=== PATIENT | male | born 1990 | race Caucasian/White ===

== ENCOUNTER 2018-06-20 22:59 | Observation (INO) | payer SELFPAY ==
[2018-06-21] MEDS ORDERED: ONDANSETRON 4 MG/2 ML VIAL ONE (00:13)
[2018-06-21] MEDS ORDERED: MORPHINE 4 MG/ML SYR ONE (00:13)
[2018-06-21] MEDS ORDERED: PANTOPRAZOLE 40 MG INJ ONE (00:14)
[2018-06-21] MEDS ORDERED: WATER FOR INJ,STERILE 10 ML ONE (00:14)
[2018-06-21] MEDS ORDERED: NA CHLORIDE 0.9% 1,000 ML ONE ×3 (00:26→08:40)
[2018-06-21 01:26] LABS: Absolute Lymphocytes (CBC) 0.6 K/uL (0.7-4.9); Absolute Monocytes 0.4 K/uL (0.1-1.3); Absolute Neutrophil 9.3 K/uL (1.8-8.0); Basophils % 0.2 % (0-1.3); Eosinophils % 1.4 % (0-4.4); Hematocrit 49.9 % (39.6-49.0); Lymphocytes % 5.7 % (15.3-44.8); Monocytes % 3.8 % (3.3-12.3); RBC Red Blood Cell Count 5.99 M/uL (4.33-5.43)
[2018-06-21 01:47] LABS: Albumin 4.9 g/dL (3.4-5.0); Bilirubin Direct 0.1 mg/dL (0-0.2); Bilirubin Total 0.6 mg/dL (0.2-1.0); Potassium 3.9 mmol/L (3.5-5.1); Protein, Total 8.3 g/dL (6.4-8.2)
--- NOTE | 2018-06-21 01:48 | ER ---
Nurse's Notes [facility] Name: Bulmaro Pickering Age: 27 yrs Sex: Male : 1990 Arrival Date: 06/20/2018 Time: 23:02 Bed 13 Private MD: Diagnosis: Abdominal tenderness;Fever, unspecified;Vomiting;Diarrhea, unspecified Presentation: 06/20 23:18 Presenting complaint: Patient states: i have epigastric, both flank pain and diarrhea mg2 started 3 hours ago. patient is vomiting in triage. Transition of care: patient was not received from another setting of care. Onset of symptoms was June 20, 2018. Risk Assessment: Do you want to hurt yourself or someone else? Patient reports no desire to harm self or others. Initial Sepsis Screen: Does the patient meet any 2 criteria? No. Patient's initial sepsis screen is negative. Does the patient have a suspected source of infection? No. Patient's initial sepsis screen is negative. Care prior to arrival: None. 23:18 Method Of Arrival: Ambulatory mg2 23:18 Acuity: JAMIL 3 mg2 Historical: - Allergies: 23:29 No Known Allergies; mg2 - Home Meds: 23:29 None [Active]; mg2 - PMHx: 23:29 None; mg2 - PSHx: 23:29 bone surgeries; mg2 - Immunization history:: Flu vaccine is not up to date. - Social history:: Smoking status: Patient uses tobacco products, smokes one-half pack cigarettes per day, Patient uses alcohol, occasionally. Patient/guardian denies using street drugs, IV drugs. - Ebola Screening: : No symptoms or risks identified at this time. - Family history:: not pertinent. Screenin:30 Abuse screen: Denies threats or abuse. Denies injuries from another. Nutritional mg2 screening: No deficits noted. Tuberculosis screening: No symptoms or risk factors identified. Fall Risk None identified. Assessment: 23:45 General: Appears in no apparent distress. uncomfortable, ill, Behavior is calm, ca1 cooperative, appropriate for age. Pain: Complains of pain in abdomen Pain currently is 7 out of 10 on a pain scale. Pain began 4 hours ago. Neuro: Level of Consciousness is awake, alert, obeys commands, Oriented to person, place, time, situation. Cardiovascular: Heart tones S1 S2 present Capillary refill < 3 seconds Patient's skin is warm and dry. Respiratory: Airway is patent Respiratory effort is even, unlabored, Respiratory pattern is regular, symmetrical, Breath sounds are clear bilaterally. GI: Abdomen is flat, non-distended, Bowel sounds present X 4 quads. Abd is soft X 4 quads Abdomen is tender to palpation X 4 quads. Reports cramping, diarrhea, nausea, vomiting. : No signs and/or symptoms were reported regarding the genitourinary system. EENT: No signs and/or symptoms were reported regarding the EENT system. EENT:. Derm: Skin is intact, Skin is pink, warm \T\ dry. Musculoskeletal: Circulation, motion, and sensation intact. 06/21 00:54 Reassessment: Patient appears in no apparent distress at this time. Patient and/or ca1 family updated on plan of care and expected duration. Pain level reassessed. Patient is alert, oriented x 3, equal unlabored respirations, skin warm/dry/pink. For CT scan abdomen. Oral contrast completed, informed in flight technician. 02:02 Reassessment: patient sent to ct scan per stretcher. mg2 02:36 Reassessment: Patient appears in no apparent distress at this time. Patient and/or cc3 family updated on plan of care and expected duration. Pain level reassessed. Patient is alert, oriented x 3, equal unlabored respirations, skin warm/dry/pink. Received from YARA Doss as a case of abdominal pain for admission awaiting bed availability, with IV cannula gauge 20 at the left ACV with ongoing IV Metronidazole 500 mg infusing well; Ciproflaxacin 400 mg IV still to be given as endorsed. 03:30 Reassessment: Patient appears in no apparent distress at this time. Patient and/or cc3 family updated on plan of care and expected duration. Pain level reassessed. Patient is alert, oriented x 3, equal unlabored respirations, skin warm/dry/pink. Patient now on ER Hold, charting continued in [facility]. Vital Signs: 06/20 23:21 BP 132 / 82; Pulse 103; Resp 18; Temp 98(TE); Pulse Ox 100% on R/A; Weight 83.91 kg; mg2 Height 6 ft. 1 in. (185.42 cm); Pain 10/10; 06/21 00:34 BP 105 / 76; Pulse 101; Resp 18; Pulse Ox 100% on R/A; ca1 01:17 BP 130 / 82; Pulse 116; Resp 28; Temp 102.; Pulse Ox 99% ; lt1 02:36 BP 106 / 53; Pulse 112; Resp 19 S; Pulse Ox 98% on R/A; cc3 03:45 BP 115 / 54; Pulse 110; Resp 20 S; Pulse Ox 96% on R/A; cc3 04:15 BP 106 / 85; Pulse 112; Resp 19 S; Pulse Ox 95% on R/A; cc3 05:15 BP 117 / 66; Pulse 107; Resp 18 S; Pulse Ox 96% on R/A; cc3 06:09 BP 108 / 79; Pulse 105; Resp 19 S; Temp 99.8(O); Pulse Ox 97% on R/A; cc3 08:30 BP 109 / 68; Pulse 80; Resp 17; Temp 98.9(O); Pulse Ox 99% on R/A; mh5 06/20 23:21 Body Mass Index 24.41 (83.91 kg, 185.42 cm) mg2 ED Course: 06/20 23:02 Patient arrived in ED. ag3 23:21 Triage completed. mg2 23:30 Arm band placed on. mg2 23:44 Maria C Zuleta, YARA is Primary Nurse. ca1 23:45 Patient has correct armband on for positive identification. Placed in gown. Bed in low ca1 position. Call light in reach. Side rails up X 1. Pulse ox on. NIBP on. Warm blanket given. 23:51 Angel Cole MD is Attending Physician. kimani 23:59 Missed attempt(s): 20 gauge in right antecubital area. lt1 23:59 Inserted saline lock: 20 gauge in left antecubital area, using aseptic technique. lt1 23:59 Initial lab(s) drawn, by me, sent to lab. lt1 06/21 01:44 Andi Palacios MD is Hospitalizing Provider. kimani 02:02 No provider procedures requiring assistance completed. mg2 02:07 CT completed. Patient tolerated procedure well. Patient moved to CT via stretcher. eh Patient moved back from CT. 02:44 CT Abd/Pelvis - W/Contrast In Process Unspecified. EDMS 07:00 Report given to YARA Menchaca. cc3 10:34 Stool Culture Sent. mh5 10:34 STOOL CULTURE COLLECTED AND SENT. mh5 16:10 IV discontinued, intact, bleeding controlled, No redness/swelling at site. Pressure rb1 dressing applied. Administered Medications: 00:00 Drug: Zofran 4 mg Route: IVP; Site: left antecubital; ca1 02:10 Follow up: Response: No adverse reaction; Marked relief of symptoms mg2 00:02 Drug: morphine 4 mg Route: IVP; Site: left antecubital; ca1 02:11 Follow up: Response: No adverse reaction; Marked relief of symptoms mg2 00:05 Drug: ProTONIX 40 mg Route: IVP; Site: left antecubital; ca1 02:11 Follow up: Response: No adverse reaction; Marked relief of symptoms mg2 00:10 Drug: NS 0.9% 1000 ml Route: IV; Rate: 1 bolus; Site: left antecubital; ca1 02:11 Follow up: Response: No adverse reaction; IV Status: Completed infusion mg2 01:53 Drug: Tylenol Suppository 650 mg Route: MS; mg2 02:40 Follow up: Response: No adverse reaction cc3 01:53 Drug: Flagyl 500 mg Volume: 100 ml; Route: IVPB; Rate: 200 ml/hr; Infused Over: 30 mg2 mins; Site: left antecubital; 03:10 Follow up: Response: No adverse reaction; IV Status: Completed infusion; IV Intake: cc3 100ml 03:15 Drug: Cipro 400 mg Volume: 200 ml; Route: IVPB; Infused Over: 60 mins; Site: left cc3 antecubital; 04:20 Follow up: Response: No adverse reaction; IV Status: Completed infusion; IV Intake: cc3 200ml Intake: 03:10 IV: 100ml; Total: 100ml. cc3 04:20 IV: 200ml; Total: 300ml. cc3 Outcome: 01:46 Decision to Hospitalize by Provider. kimani 16:10 Discharged to home ambulatory. rb1 16:10 Condition: stable 16:10 Discharge instructions given to patient, Instructed on discharge instructions, follow up and referral plans. Demonstrated understanding of instructions, follow-up care, Prescriptions given X none 16:28 Patient left the ED. Signatures: Dispatcher [employer] EDCT Angel Cole MD MD cha Hagler, Ervin eh Smirch, Shelby, RN RN Bernarda Diaz, YARA RN rb1 [address] [facility] Terry Patten RN RN mg2 Genevieve Valdez cc3 Kelly Peter 3 Maria C Zuleta RN RN ca1 Keisha, Kenia lt1 Corrections: (The following items were deleted from the chart) 06/20 23:32 23:21 Resp 18bpm; Pulse Ox 100% RA; Temp 98F Temporal; Pain 10/10; mg2 mg2 06/21 04:36 03:30 Reassessment: Patient appears in no apparent distress at this time. Patient cc3 and/or family updated on plan of care and expected duration. Pain level reassessed. Patient is alert, oriented x 3, equal unlabored respirations, skin warm/dry/pink. Patient now on ER Hold. cc3 06:44 06:09 BP 108 / 79; Pulse 105bpm; Resp 19bpm; Spontaneous; Pulse Ox 97% RA; cc3 cc3
--- NOTE | 2018-06-21 01:48 | EDPHYS ---
Physician Documentation [facility] Name: Bulmaro Pickering Age: 27 yrs Sex: Male : 1990 Arrival Date: 06/20/2018 Time: 23:02 Bed 13 Private MD: ED Physician Angel Cole HPI: 06/20 23:56 This 27 yrs old Male presents to ER via Ambulatory with complaints of kimani Abdominal Pain. 23:56 The patient presents with abdominal pain in the upper abdomen, in the lower abdomen, kimani abdominal distention in the upper abdomen, in the lower abdomen. Onset: The symptoms/episode began/occurred just prior to arrival, today. The patient presents to the emergency department with nausea, vomiting, diarrhea, abdominal pain, of the right upper quadrant, left upper quadrant, right lower quadrant and left lower quadrant. Onset: The symptoms/episode began/occurred today. Possible causes: unknown. The symptoms are aggravated by nothing. The symptoms are alleviated by nothing. Associated signs and symptoms: Pertinent positives: diarrhea, nausea, vomiting. Associated signs and symptoms: Pertinent positives: nausea and vomiting, diarrhea. Historical: - Allergies: 23:29 No Known Allergies; mg2 - Home Meds: 23:29 None [Active]; mg2 - PMHx: 23:29 None; mg2 - PSHx: 23:29 bone surgeries; mg2 - Immunization history:: Flu vaccine is not up to date. - Social history:: Smoking status: Patient uses tobacco products, smokes one-half pack cigarettes per day, Patient uses alcohol, occasionally. Patient/guardian denies using street drugs, IV drugs. - Ebola Screening: : No symptoms or risks identified at this time. - Family history:: not pertinent. ROS: 23:56 Constitutional: Negative for fever, chills, and weight loss, Eyes: Negative for injury, kimani pain, redness, and discharge, ENT: Negative for injury, pain, and discharge, Neck: Negative for injury, pain, and swelling, Cardiovascular: Negative for chest pain, palpitations, and edema, Respiratory: Negative for shortness of breath, cough, wheezing, and pleuritic chest pain, Back: Negative for injury and pain, : Negative for injury, bleeding, discharge, and swelling, MS/Extremity: Negative for injury and deformity, Skin: Negative for injury, rash, and discoloration, Neuro: Negative for headache, weakness, numbness, tingling, and seizure. 23:56 Abdomen/GI: Positive for abdominal pain, nausea and vomiting, diarrhea, abdominal cramps, of the right lower quadrant and left lower quadrant. Exam: 23:59 Constitutional: This is a well developed, well nourished patient who is awake, alert, kimani and in no acute distress. Head/Face: Normocephalic, atraumatic. Eyes: Pupils equal round and reactive to light, extra-ocular motions intact. Lids and lashes normal. Conjunctiva and sclera are non-icteric and not injected. Cornea within normal limits. Periorbital areas with no swelling, redness, or edema. ENT: Nares patent. No nasal discharge, no septal abnormalities noted. Tympanic membranes are normal and external auditory canals are clear. Oropharynx with no redness, swelling, or masses, exudates, or evidence of obstruction, uvula midline. Mucous membranes moist. Neck: Trachea midline, no thyromegaly or masses palpated, and no cervical lymphadenopathy. Supple, full range of motion without nuchal rigidity, or vertebral point tenderness. No Meningismus. Chest/axilla: Normal chest wall appearance and motion. Nontender with no deformity. No lesions are appreciated. Cardiovascular: Regular rate and rhythm with a normal S1 and S2. No gallops, murmurs, or rubs. Normal PMI, no JVD. No pulse deficits. Respiratory: Lungs have equal breath sounds bilaterally, clear to auscultation and percussion. No rales, rhonchi or wheezes noted. No increased work of breathing, no retractions or nasal flaring. Back: No spinal tenderness. No costovertebral tenderness. Full range of motion. Male : Normal genitalia with no discharge or lesions. Skin: Warm, dry with normal turgor. Normal color with no rashes, no lesions, and no evidence of cellulitis. MS/ Extremity: Pulses equal, no cyanosis. Neurovascular intact. Full, normal range of motion. Neuro: Awake and alert, GCS 15, oriented to person, place, time, and situation. Cranial nerves II-XII grossly intact. Motor strength 5/5 in all extremities. Sensory grossly intact. Cerebellar exam normal. Normal gait. Psych: Awake, alert, with orientation to person, place and time. Behavior, mood, and affect are within normal limits. 23:59 Abdomen/GI: Inspection: distension, Bowel sounds: normal, Palpation: mild abdominal tenderness, moderate abdominal tenderness, Liver: no appreciated palpable abnormalities, Hernia: not appreciated. Vital Signs: 23:21 BP 132 / 82; Pulse 103; Resp 18; Temp 98(TE); Pulse Ox 100% on R/A; Weight 83.91 kg; mg2 Height 6 ft. 1 in. (185.42 cm); Pain 1010; 06/21 00:34 BP 105 / 76; Pulse 101; Resp 18; Pulse Ox 100% on R/A; ca1 01:17 BP 130 / 82; Pulse 116; Resp 28; Temp 102.; Pulse Ox 99% ; lt1 02:36 BP 106 / 53; Pulse 112; Resp 19 S; Pulse Ox 98% on R/A; cc3 03:45 BP 115 / 54; Pulse 110; Resp 20 S; Pulse Ox 96% on R/A; cc3 04:15 BP 106 / 85; Pulse 112; Resp 19 S; Pulse Ox 95% on R/A; cc3 05:15 BP 117 / 66; Pulse 107; Resp 18 S; Pulse Ox 96% on R/A; cc3 06:09 BP 108 / 79; Pulse 105; Resp 19 S; Temp 99.8(O); Pulse Ox 97% on R/A; cc3 08:30 BP 109 / 68; Pulse 80; Resp 17; Temp 98.9(O); Pulse Ox 99% on R/A; mh5 06/20 23:21 Body Mass Index 24.41 (83.91 kg, 185.42 cm) mg2 MDM: 06/20 23:51 Patient medically screened. kimani 06/21 00:01 Data reviewed: vital signs, nurses notes, EMS record, lab test result(s), radiologic kimani studies, CT scan, plain films. 06/20 23:27 Order name: Basic Metabolic Panel 06/20 23:27 Order name: CBC with Diff 06/20 23:27 Order name: Creatinine for Radiology; Complete Time: 01:39 06/20 23:27 Order name: Hepatic Function 06/20 23:27 Order name: Lipase 06/21 01:38 Order name: Manual Differential EDMS 06/20 23:56 Order name: CT Abd/Pelvis - W/Contrast [facility] 06/21 10:25 Order name: Stool Culture mh5 06/20 23:27 Order name: IV Saline Lock; Complete Time: 00:10 06/20 23:27 Order name: Labs collected and sent; Complete Time: 00:10 06/21 02:46 Order name: CONS Pharmacy Consult [facility] 06/21 02:46 Order name: Full Liquid EDMS Administered Medications: 00:00 Drug: Zofran 4 mg Route: IVP; Site: left antecubital; ca1 02:10 Follow up: Response: No adverse reaction; Marked relief of symptoms mg2 00:02 Drug: morphine 4 mg Route: IVP; Site: left antecubital; ca1 02:11 Follow up: Response: No adverse reaction; Marked relief of symptoms mg2 00:05 Drug: ProTONIX 40 mg Route: IVP; Site: left antecubital; ca1 02:11 Follow up: Response: No adverse reaction; Marked relief of symptoms mg2 00:10 Drug: NS 0.9% 1000 ml Route: IV; Rate: 1 bolus; Site: left antecubital; ca1 02:11 Follow up: Response: No adverse reaction; IV Status: Completed infusion mg2 01:53 Drug: Tylenol Suppository 650 mg Route: ND; mg2 02:40 Follow up: Response: No adverse reaction cc3 01:53 Drug: Flagyl 500 mg Volume: 100 ml; Route: IVPB; Rate: 200 ml/hr; Infused Over: 30 mg2 mins; Site: left antecubital; 03:10 Follow up: Response: No adverse reaction; IV Status: Completed infusion; IV Intake: cc3 100ml 03:15 Drug: Cipro 400 mg Volume: 200 ml; Route: IVPB; Infused Over: 60 mins; Site: left cc3 antecubital; 04:20 Follow up: Response: No adverse reaction; IV Status: Completed infusion; IV Intake: cc3 200ml Disposition: 06/21/18 01:46 Hospitalization ordered by Andi Palacios for Observation. Preliminary diagnosis are Abdominal tenderness, Fever, unspecified, Vomiting, Diarrhea, unspecified. - Bed requested for [facility] ER HOLD. - Status is Observation. ss - Condition is Stable. - Problem is new. - Symptoms have improved. UTI on Admission? No Signatures: Dispatcher [employer] EDMS Angel Cole MD MD cha Chretien, Felicia, RN RN fc Monae Lobato RN RN ss Terry Patten, YARA RN [facility] Genevieve Valdez cc3 Maria C Zuleta RN RN ca1 Corrections: (The following items were deleted from the chart) 03:29 01:46 Hospitalization Ordered by Andi Palacios MD for Observation. Preliminary fc diagnosis is Abdominal tenderness; Fever, unspecified; Vomiting; Diarrhea, unspecified. Bed requested for Telemetry/MedSurg (observation). Status is Observation. Condition is Stable. Problem is new. Symptoms have improved. UTI on Admission? No. kimani 16:28 03:29 06/21/2018 01:46 Hospitalization Ordered by Andi Palacios MD for Observation. Preliminary diagnosis is Abdominal tenderness; Fever, unspecified; Vomiting; Diarrhea, unspecified. Bed requested for [facility] ER HOLD. Status is Observation. Condition is Stable. Problem is new. Symptoms have improved. UTI on Admission? No. fc
[2018-06-21] MEDS ORDERED: ACETAMINOPHEN 650MG/RECT SUPP PR ONE (01:57)
[2018-06-21] MEDS ORDERED: METRONIDAZOLE 500mg IVPB 500 MG/100 ML BAG IV ONE (01:57)
[2018-06-21] MEDS ORDERED: CIPROFLOXACIN 400mg IV 400 MG/200 ML BAG IV ONE (01:57)
[2018-06-21 02:20] LABS: Blood Morphology Comment NOT SEEN (NOT SEEN); Platelet Estimate ADEQ
[2018-06-21] MEDS ORDERED: ONDANSETRON 4 MG/2 ML VIAL IV PRN (02:43)
[2018-06-21] MEDS ORDERED: ACETAMINOPHEN 500 MG TAB PO PRN (02:43)
[2018-06-21] MEDS: NA CHLORIDE 0.9% 1,000 ML IV SCH ×2 (05:00→13:00)
[2018-06-21] MEDS ORDERED: METHYLPREDNISOLONE 125 MG INJ IV SCH (06:00)
[2018-06-21] MEDS ORDERED: METHYLPREDNISOLONE 125 MG INJ ONE (06:02)
[2018-06-21 06:22] VITALS: BMI 24.4
[2018-06-21] MEDS ORDERED: ACETAMINOPHEN 500 MG TAB ONE (07:44)
[2018-06-21] MEDS ORDERED: NA CHLORIDE 0.9% 1,000 ML IV ONE (08:24)
[2018-06-21] MEDS ORDERED: INFLUENZA VACCINE (for 3y+) 0.5 ML DOSE IMVAC ONE ×2 (09:00→09:35)
--- NOTE | 2018-06-21 09:25 | P.HP ---
Certification for Inpatient Patient admitted to: Observation With expected LOS: <2 Midnights Patient will require the following post-hospital care: None Practitioner: I am a practitioner with admitting privileges, knowledge of patient current condition, hospital course, and medical plan of care. Services: Services provided to patient in accordance with Admission requirements found in Title 42 Section 412.3 of the Code of Federal Regulations Patient History Date of Service: 06/21/18 Reason for admission: viral gastroenteritis History of Present Illness: Patient is a 27-year-old gentleman who had abdominal pain while at work. This progressed to persistent diarrhea. His pain was getting more severe and he was brought to the emergency room. In the ER he was given IV fluids and pain medication and his symptoms started improving. He was still having pain so he was admitted to the hospital for further evaluation. Allergies No Known Allergies Allergy (Unverified 06/21/18 04:39) - Past Medical/Surgical History Has patient received pneumonia vaccine in the past: Yes Diabetic: No -: asthma -: minor lip surgery - Family History Mother Medical History: Diabetes, Other (see notes) Notes: mother - arthritis. brother - bipolar, schizophrenia - Social History Smoking Status: Current every day smoker Alcohol use: Yes CD- Drugs: No Caffeine use: Yes Place of Residence: Home Review of Systems 10-point ROS is otherwise unremarkable Physical Examination - Vital Signs Temperature: 98.7 F Blood Pressure: 97/60 Pulse: 107 Respirations: 17 Pulse Ox (%): 97 - Physical Exam General: Alert, In no apparent distress, Oriented x3 HEENT: Atraumatic, PERRLA, Mucous membr. moist/pink, EOMI, Sclerae nonicteric Neck: Supple, 2+ carotid pulse no bruit, No LAD, Without JVD or thyroid abnormality Respiratory: Clear to auscultation bilaterally, Normal air movement Cardiovascular: Regular rate/rhythm, Normal S1 S2, No murmurs Gastrointestinal: Normal bowel sounds, Soft and benign, Non-distended, Tenderness ( mild tenderness) Musculoskeletal: No clubbing, No swelling, No tenderness Integumentary: No rashes Neurological: Normal gait, Normal speech, Normal strength at 5/5 x4 extr, Normal tone, Sensation intact, Cranial nerves 3-12 intact, Normal affect Lymphatics: No axilla or inguinal lymphadenopathy - Studies Laboratory Data (last 24 hrs) 06/21/18 00:21: Creatinine 1.06 06/21/18 00:21: WBC 10.5, Hgb 17.0, Hct 49.9 H, Plt Count 135 L 06/21/18 00:21: Sodium 141, Potassium 3.9, BUN 16, Creatinine 1.05, Glucose 112 H, Total Bilirubin 0.6, AST 29, ALT 53, Alkaline Phosphatase 67, Lipase 63 L Assessment & Plan - Problems (Diagnosis) (1) Viral gastroenteritis Current Visit: Yes Status: Acute - Plan Plan: 1. IV fluids 2. Stool studies 3. advanced diet as tolerated 4. Pain control 5. Repeat abdominal film if pain worsens 6. GI and DVT prophylaxis Discharge Plan: Home Plan to discharge in: 24 Hours - Advance Directives Does patient have a Living Will: No Does patient have a Durable POA for Healthcare: No - Code Status/Comfort Care Code Status Assessed: Yes Code Status: Full Code Critical Care: No Time Spent Managing PTS Care (In Minutes): 45
[2018-06-21 16:19] VITALS: BP 105/63; TEMP 98.7
[2018-06-21 17:13] VITALS: O2SAT 99
--- NOTE | 2018-06-21 19:46 | RAD REPORT ---
EXAM DESCRIPTION: CT - Abdomen Pelvis W Contrast - 06/21/2018 4:41 am CLINICAL HISTORY: The patient is 27 years old and is Male; ABD PAIN COMPARISON: No relevant prior studies available. TECHNIQUE: Axial computed tomography images of the abdomen and pelvis with intravenous contrast. Sagittal and co franky reformatted images were created and reviewed. This CT exam was performed using one or more of t he following dose reduction techniques: Automated exposure control, adjustment of the mA and/or kV ac cording to patient size, and/or use of iterative reconstruction technique. FINDINGS: Lung bases: Unremarkable. No mass. No consolidation. ABDOMEN: Liver: The liver is prominent. Gallbladder and bile ducts: No calcified stones. No ductal dilation. Pancreas: No ductal dilation. No mass. Spleen: Unremarkable. Adrenals:Unremarkable. No mass. Kidneys and ureters: Unremarkable. No solid mass. No hydronephrosis. Stomach and bowel: The stomach is moderately distended with oral contrast. Oral contrast is present w ithin the proximal and mid small bowel. The distal small bowel is decompressed. The majority of the c olon is filled with liquid stool. There is no mucosal thickening or evidence of bowel obstruction. PELVIS: Appendix: The appendix is normal in caliber without surrounding inflammation. Bladder: Unremarkable. No mass. Reproductive: Unremarkable as visualized. ABDOMEN and PELVIS: Intraperitoneal space: Unremarkable. No free air. No significant fluid collection. Bones/joints: No acute fracture. Soft tissues: The soft tissues are normal. Vasculature: Unremarkable. No abdominal aortic aneurysm. Lymph nodes: Unremarkable. No enlarged lymph nodes. IMPRESSION: Nonspecific appearance of the colon filled with liquid stool which may be secondary to a history of diarrhea. There is no mucosal thickening to suggest colitis at this time. No bowel obstru ction. 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 The interpreting radiologist is f ully responsible for the content of the report.
== END 2018-06-21 16:10 | disposition home or self-care (01) ==
LOC: ER 22:59 → ERHOLD 06-21 02:44
PROVIDERS: ADMIT Hospitalist; ATTEND Hospitalist
DX: A08.4 Viral intestinal infection, unspecified (principal); F17.210 Nicotine dependence, cigarettes, uncomplicated; Z23 Encounter for immunization
CPT/HCPCS: 36415; 74177; 80048; 80076; 83690; 85025; 87045; 87046; 87177; 87209; 89055; 96361; 96365; 96367; 96375; 99284; C9113; G0008; G0378; J0744; J2405; J2930; J7030; Q2035; Q9967

== ENCOUNTER 2020-11-01 20:38 | Emergency (ER) | payer BC, SELFPAY ==
--- NOTE | 2020-11-01 22:53 | ER ---
Nurse's Notes [facility] Name: Bulmaro Pickering Age: 30 yrs Sex: Male : 1990 Arrival Date: 11/01/2020 Time: 20:42 Bed 17 Private MD: Diagnosis: Contusion of right foot Presentation: 11/01 20:55 Chief complaint: Patient states: C/O R foot pain s/p "2x4 fell on it". Minimal swelling ad5 noted to dorsal aspect of R foot, distal SMCs intact. Pt reports difficulty ambulating d/t pain. Coronavirus screen: At this time, the client does not indicate any symptoms associated with coronavirus-19. Ebola Screen: No symptoms or risks identified at this time. Initial Sepsis Screen: Does the patient meet any 2 criteria? No. Patient's initial sepsis screen is negative. Does the patient have a suspected source of infection? No. Patient's initial sepsis screen is negative. Risk Assessment: Do you want to hurt yourself or someone else? Patient reports no desire to harm self or others. Onset of symptoms was November 01, 2020. 20:55 Method Of Arrival: Wheelchair ad5 20:55 Acuity: JAMIL 4 ad5 Triage Assessment: 20:57 General: Appears in no apparent distress. Behavior is calm, cooperative, appropriate ad5 for age. 21:42 Musculoskeletal: Swelling present in right foot. ea Historical: - Allergies: 20:57 No Known Allergies; ad5 - PMHx: 20:57 None; ad5 - Immunization history:: Adult Immunizations unknown. - Social history:: Smoking status: unknown. Screenin:36 Abuse screen: Denies threats or abuse. Nutritional screening: No deficits noted. ea Tuberculosis screening: No symptoms or risk factors identified. Fall Risk None identified. Assessment: 21:35 General: Appears uncomfortable, Behavior is appropriate for age. Pain: Complains of ea pain in right foot. Neuro: Level of Consciousness is awake, alert, obeys commands, Oriented to person, place, time. Cardiovascular: Patient's skin is warm and dry. Respiratory: Airway is patent Respiratory effort is even, unlabored, Respiratory pattern is regular, symmetrical. Derm: Skin is pink, warm \\T\\ dry. 22:47 Reassessment: Patient and/or family updated on plan of care and expected duration. Pain ea level reassessed. Patient is alert, oriented x 3, equal unlabored respirations, skin warm/dry/pink. 23:00 Reassessment: Patient and/or family updated on plan of care and expected duration. Pain ea level reassessed. Patient is alert, oriented x 3, equal unlabored respirations, skin warm/dry/pink. Discharge instruction given to patient verbalized the understanding of instruction. Pt left ED ambulatory tolerating well. Vital Signs: 20:55 BP 128 / 98; Pulse 73; Resp 18 S; Temp 98.3; Pulse Ox 98% on R/A; Weight 97.52 kg; ad5 Height 6 ft. 1 in. (185.42 cm); 22:48 BP 111 / 75; Pulse 68; Resp 18; Pulse Ox 98% on R/A; ea 20:55 Body Mass Index 28.37 (97.52 kg, 185.42 cm) ad5 ED Course: 20:42 Patient arrived in ED. bp1 20:57 Triage completed. ad5 21:29 Arm band placed on. ad5 21:32 Janine Salazar RN is Primary Nurse. ea 21:34 Faraz Emerson NP is PHCP. pm1 21:34 Darrick Pennington MD is Attending Physician. pm1 21:36 Patient has correct armband on for positive identification. Bed in low position. Call ea light in reach. 22:31 Foot Right 3 View XRAY In Process Unspecified. EDMS 22:52 applied walking boot to R foot. mt 23:00 No provider procedures requiring assistance completed. Patient did not have IV access ea during this emergency room visit. Administered Medications: No medications were administered Outcome: 22:53 Discharge ordered by . pm1 23:00 Discharged to home ambulatory, with family. ea 23:00 Condition: stable 23:00 Discharge instructions given to patient, Instructed on discharge instructions, follow up and referral plans. medication usage, Demonstrated understanding of instructions, follow-up care, medications, Prescriptions given X 1. 23:00 Patient left the ED. ea Signatures: Dispatcher [employer] EDMS Faraz Emerson, DONALD MARKET DEVELOPER pm1 Angela Lizama nv Janine Salazar RN RN ea Janay Cabrera bp1 Phillip Campbell ad5
--- NOTE | 2020-11-01 22:53 | EDPHYS ---
Physician Documentation [facility] Name: Bulmaro Pickering Age: 30 yrs Sex: Male : 1990 Arrival Date: 11/01/2020 Time: 20:42 Bed 17 Private MD: ED Physician Darrick Pennington HPI: 11/01 22:53 This 30 yrs old Male presents to ER via Wheelchair with complaints of Foot pm1 Injury. 22:53 The patient presents with a contusion. The complaints affect the dorsum of right foot. pm1 Context: The problem was sustained at work, resulted from 2x4 fell on his foot, the patient can partially bear weight. Onset: The symptoms/episode began/occurred today. Modifying factors: The symptoms are alleviated by elevating leg, the symptoms are aggravated by weight bearing. Associated signs and symptoms: Pertinent positives: swelling, Pertinent negatives numbness, tingling. Treatment prior to arrival includes: elevation of the extremity, icing the affected extremity. Severity of symptoms: in the emergency department the symptoms are actually worse. The patient has not experienced similar symptoms in the past. The patient has not recently seen a physician. Historical: - Allergies: 20:57 No Known Allergies; ad5 - PMHx: 20:57 None; ad5 - Immunization history:: Adult Immunizations unknown. - Social history:: Smoking status: unknown. ROS: 22:53 Constitutional: Negative for fever, chills, and weight loss, Cardiovascular: Negative pm1 for chest pain, palpitations, and edema, Respiratory: Negative for shortness of breath, cough, wheezing, and pleuritic chest pain. 22:53 Skin: Negative for injury, rash, and discoloration. 22:53 MS/extremity: Positive for pain, of the dorsum of right foot, Negative for decreased range of motion, deformity. 22:53 All other systems are negative. Exam: 22:53 Constitutional: This is a well developed, well nourished patient who is awake, alert, pm1 and in no acute distress. 22:53 Head/Face: Normocephalic, atraumatic. 22:53 Back: No spinal tenderness. No costovertebral tenderness. Full range of motion. Skin: Warm, dry with normal turgor. Normal color with no rashes, no lesions, and no evidence of cellulitis. 22:53 Eyes: Extraocular movements: no acute changes, Conjunctiva: no acute changes, no injection, Sclera: icterus, is not appreciated. 22:53 ENT: Exam is negative for acute changes, Mouth: Lips: normal, Oral mucosa: normal, pink and intact, moist. 22:53 Cardiovascular: Exam negative for acute changes, Rate: normal, Rhythm: regular, Pulses: no pulse deficits are appreciated. 22:53 Respiratory: Exam negative for acute changes, respiratory distress, shortness of breath. 22:53 Musculoskeletal/extremity: Exam is negative for acute changes, Extremities: grossly normal except: noted in the dorsum of right foot: ecchymosis, swelling, tenderness, There is no evidence of deformity, Circulation is intact in all extremities. 22:53 Neuro: Orientation: is normal, Mentation: is normal, Motor: is normal, moves all fours. Vital Signs: 20:55 BP 128 / 98; Pulse 73; Resp 18 S; Temp 98.3; Pulse Ox 98% on R/A; Weight 97.52 kg; ad5 Height 6 ft. 1 in. (185.42 cm); 22:48 BP 111 / 75; Pulse 68; Resp 18; Pulse Ox 98% on R/A; ea 20:55 Body Mass Index 28.37 (97.52 kg, 185.42 cm) ad5 MDM: 21:34 Patient medically screened. pm1 22:53 Data reviewed: vital signs. Data interpreted: Pulse oximetry: on room air is 98 %. pm1 Interpretation: normal. Counseling: I had a detailed discussion with the patient and/or guardian regarding: the historical points, exam findings, and any diagnostic results supporting the discharge/admit diagnosis, radiology results, the need for outpatient follow up, to return to the emergency department if symptoms worsen or persist or if there are any questions or concerns that arise at home. 11/01 20:59 Order name: Foot Right 3 View XRAY ad5 11/01 22:35 Order name: Walking boot; Complete Time: 22:47 pm1 Administered Medications: No medications were administered Disposition: 11/02 03:21 Co-signature as Attending Physician, Darrick Pennington MD. [email or web address] Disposition: 11/01/20 22:53 Discharged to Home. Impression: Contusion of right foot. - Condition is Stable. - Discharge Instructions: Foot Contusion, Walking Boot. - Prescriptions for Diclofenac Sodium 75 mg Oral Tablet, Delayed Release (E.C.) - take 1 tablet by ORAL route 2 times per day As needed; 30 tablet. - Medication Reconciliation Form, Work release form, Thank You Letter, Antibiotic Education, Prescription Opioid Use form. - Follow up: Emergency Department; When: As needed; Reason: Worsening of condition. Follow up: Private Physician; When: 2 - 3 days; Reason: Recheck today's complaints, Continuance of care, Re-evaluation by your physician. - Problem is new. - Symptoms have improved. Signatures: Dispatcher [employer] EDMS Faraz Emerson, DONALD ASSISTANT FITNESS MANAGER pm1 Janine Salazar, YARA RN Darrick Ayers MD MD 7 Phillip Campbell Corrections: (The following items were deleted from the chart) 11/01 23:00 22:53 11/01/2020 22:53 Discharged to Home. Impression: Contusion of right foot. ea Condition is Stable. Forms are Medication Reconciliation Form, Thank You Letter, Antibiotic Education, Prescription Opioid Use. Follow up: Emergency Department; When: As needed; Reason: Worsening of condition. Follow up: Private Physician; When: 2 - 3 days; Reason: Recheck today's complaints, Continuance of care, Re-evaluation by your physician. Problem is new. Symptoms have improved. pm1
[2020-11-01 23:31] VITALS: TEMP 98.3; O2SAT 98
[2020-11-01 23:33] VITALS: BP 111/75
--- NOTE | 2020-11-02 08:57 | RAD REPORT ---
EXAM DESCRIPTION: RAD - Foot Right 3 View - 11/01/2020 10:31 pm CLINICAL HISTORY: SMASH INJURY COMPARISON: No comparisons FINDINGS: Soft tissue swelling is seen along the dorsum of the midfoot. No acute fracture or disloca tion.
== END 2020-11-01 23:00 | disposition home or self-care (01) ==
LOC: ER 20:38
DX: S90.31XA Contusion of right foot, initial encounter (principal); W20.8XXA Other cause of strike by thrown, projected or falling object, initial encounter; Y99.0 Civilian activity done for income or pay
CPT/HCPCS: 99283

== ENCOUNTER 2023-11-28 10:40 | Emergency (ER) | payer BC ==
[2023-11-28] MEDS ORDERED: LEVALBUTEROL 1.25 MG/3 ML NEB ONE (11:37)
[2023-11-28] MEDS ORDERED: MAGNES/ALUMIN/SIMET 30ML UCUP ONE (11:37)
[2023-11-28] MEDS ORDERED: IPRATROPIUM BROM 0.5MG/2.5ML ONE (11:37)
[2023-11-28] MEDS ORDERED: LIDOCAINE VISCOUS 2% 10ML ORAL SOLN ONE (11:38)
--- NOTE | 2023-11-28 12:15 | RAD REPORT ---
EXAM DESCRIPTION: Nain Alicea And Ananda (2 Views)11/28/2023 12:09 pm CLINICAL HISTORY: Cough COMPARISON: 2020 FINDINGS: The lungs appear clear of acute infiltrate. The heart is normal size IMPRESSION: No acute abnormalities displayed
--- NOTE | 2023-11-28 12:16 | EDPHYS ---
Physician Documentation [facility] Name: Bulmaro Pickering Age: 33 yrs Sex: Male : 1990 Arrival Date: 11/28/2023 Time: 10:40 Bed 14 Private MD: ED Physician Angel Cole HPI: 11/27 11:23 This 33 yrs old Male presents to ER via Ambulatory with complaints of Chemical kimani Inhalation. 11:23 The patient or guardian reports cough, difficulty breathing. Onset: The kimani symptoms/episode began/occurred just prior to arrival. Severity of symptoms: At their worst the symptoms were mild, in the emergency department the symptoms are unchanged. Modifying factors: The symptoms are alleviated by cool environment, the symptoms are aggravated by exertion. Associated signs and symptoms: Pertinent positives: chest pain, sore throat. The patient has not experienced similar symptoms in the past. Historical: - Allergies: 10:46 No Known Allergies; mb9 - Home Meds: 10:46 None [Active]; mb9 - PMHx: 10:46 Asthma; Hypertensive disorder; mb9 - PSHx: 10:46 None; mb9 - Immunization history:: Adult Immunizations up to date. - Infectious Disease History:: Denies. - Social history:: Smoking status: Reported history of juuling and/or vaping. - Family history:: not pertinent. ROS: 11:23 Constitutional: Negative for fever, chills, and weight loss, Eyes: Negative for injury, kimani pain, redness, and discharge, ENT: Negative for injury, pain, and discharge, Neck: Negative for injury, pain, and swelling, Cardiovascular: Negative for chest pain, palpitations, and edema, Abdomen/GI: Negative for abdominal pain, nausea, vomiting, diarrhea, and constipation, Back: Negative for injury and pain, : Negative for injury, bleeding, discharge, and swelling, MS/Extremity: Negative for injury and deformity, Skin: Negative for injury, rash, and discoloration, Neuro: Negative for headache, weakness, numbness, tingling, and seizure, Psych: Negative for depression, anxiety, suicide ideation, homicidal ideation, and hallucinations, Allergy/Immunology: Negative for hives, rash, and allergies, Endocrine: Negative for neck swelling, polydipsia, polyuria, polyphagia, and marked weight changes, Hematologic/Lymphatic: Negative for swollen nodes, abnormal bleeding, and unusual bruising, 11:23 Respiratory: Positive for cough, shortness of breath, at rest. Exam: 11:23 Constitutional: This is a well developed, well nourished patient who is awake, alert, kimani and in no acute distress. Head/Face: Normocephalic, atraumatic. Eyes: Pupils equal round and reactive to light, extra-ocular motions intact. Lids and lashes normal. Conjunctiva and sclera are non-icteric and not injected. Cornea within normal limits. Periorbital areas with no swelling, redness, or edema. ENT: Nares patent. No nasal discharge, no septal abnormalities noted. Tympanic membranes are normal and external auditory canals are clear. Oropharynx with no redness, swelling, or masses, exudates, or evidence of obstruction, uvula midline. Mucous membranes moist. Neck: Trachea midline, no thyromegaly or masses palpated, and no cervical lymphadenopathy. Supple, full range of motion without nuchal rigidity, or vertebral point tenderness. No Meningismus. Chest/axilla: Normal chest wall appearance and motion. Nontender with no deformity. No lesions are appreciated. Cardiovascular: Regular rate and rhythm with a normal S1 and S2. No gallops, murmurs, or rubs. Normal PMI, no JVD. No pulse deficits. Respiratory: Lungs have equal breath sounds bilaterally, clear to auscultation and percussion. No rales, rhonchi or wheezes noted. No increased work of breathing, no retractions or nasal flaring. Abdomen/GI: Soft, non-tender, with normal bowel sounds. No distension or tympany. No guarding or rebound. No evidence of tenderness throughout. Back: No spinal tenderness. No costovertebral tenderness. Full range of motion. Male : Normal genitalia with no discharge or lesions. Skin: Warm, dry with normal turgor. Normal color with no rashes, no lesions, and no evidence of cellulitis. MS/ Extremity: Pulses equal, no cyanosis. Neurovascular intact. Full, normal range of motion. Neuro: Awake and alert, GCS 15, oriented to person, place, time, and situation. Cranial nerves II-XII grossly intact. Motor strength 5/5 in all extremities. Sensory grossly intact. Cerebellar exam normal. Normal gait. Psych: Awake, alert, with orientation to person, place and time. Behavior, mood, and affect are within normal limits. Vital Signs: 10:45 BP 165 / 98; Pulse 80; Resp 18; Temp 97.5; Pulse Ox 100% on R/A; Weight 99.79 kg; mb9 Height 6 ft. 1 in. ; 12:30 BP 147 / 79; Pulse 75; Resp 16; Pulse Ox 100% ; bp 10:45 Body Mass Index 29.03 (99.79 kg, 185.42 cm) mb9 MDM: 10:44 Patient medically screened. kimani 11:28 Differential Diagnosis: Obstructed Airway Bronchitis Influenza Upper Respiratory kimani Infection Pneumonia Tracheal Injury. Data reviewed: vital signs, nurses notes, radiologic studies, plain films. Consideration of Admission/Observation Escalation of care including admission/observation considered. I considered the following discharge prescriptions or medication management in the emergency department Medications were administered in the Emergency Department. See MAR. Independent interpretation of the following test(s) in the Emergency Department X-Ray: My interpretation is CXR. Historians other than the Patient: PT WELL INFORMED. Care significantly affected by the following chronic conditions: Hypertension, ASTHMA. 11/27 11:17 Order name: Chest Pa And Lat (2 Views) XRAY kimani Administered Medications: 11:35 Drug: Levalbuterol Inhalation 1.25 mg Inhalation once Route: Inhalation; bp 11:35 Drug: Ipratropium Inhalation Aerosol 0.5 mg Inhalation once Route: Inhalation; bp 11:35 Drug: GI Cocktail without - (Maalox PO 30 ml, Lidocaine Mucous Membrane 2 % 15 bp ml) PO once Route: PO; 12:31 Follow up: Response: No adverse reaction bp 12:19 Drug: predniSONE PO 40 mg PO once Route: PO; bp 12:30 Follow up: Response: No adverse reaction bp Disposition Summary: 11/28/23 12:16 Discharge Ordered Notes: Location: Home kimani Problem: new kimani Symptoms: have improved kimani Condition: Fair kimani Diagnosis - Acute interstitial pneumonitis - CHEMICAL kimani Followup: kimani - With: Private Physician - When: 2 - 3 days - Reason: Recheck today's complaints, Continuance of care, Re-evaluation by your physician Followup: kimani - With: Yobani Turpin MD - When: 2 - 3 days - Reason: Recheck today's complaints, Re-evaluation by your physician Discharge Instructions: - Discharge Summary Sheet kimani - Pneumonitis [facility] Forms: - Medication Reconciliation Form kimani - Antibiotic Education kimani - Prescription Opioid Use kimani - Patient Portal Instructions kimani - Leadership Thank You Letter kimani - Work release form ap3 Prescriptions: - albuterol sulfate 90 mcg/actuation Inhalation HFA Aerosol Inhaler - inhale 2 inhalation INHALATION route every 4-6 hours; 1 unit; Refills: 0, [facility] Product Selection Permitted - Pepcid 20 mg Oral tablet - take 1 tablet ORAL route every 12 hours for 21 days; 42 tablet; Refills: 0, [facility] Product Selection Permitted - Zithromax Z-Kin 250 mg Oral Tablet - take 1 tablet ORAL route as directed for 5 days Day 1 - take two (2) tablets kimani one time. Day 2, 3, 4 , 5 take one (1) tablet once daily.; 6 tablet; Refills: 0, Product Selection Permitted - Prednisone 20 mg Oral Tablet - take 2 tablets ORAL route once daily for 5 days; 10 tablet; Refills: 0, Product kimani Selection Permitted Signatures: Dispatcher [employer] Angel Oconnor MD MD cha Peltier, Brian, RN RN Renita Rico RN RN mb9
--- NOTE | 2023-11-28 12:16 | ER ---
Nurse's Notes [facility] Name: Bulmaro Pickering Age: 33 yrs Sex: Male : 1990 Arrival Date: 11/28/2023 Time: 10:40 Bed 14 Private MD: Diagnosis: Acute interstitial pneumonitis-CHEMICAL Presentation: 11/27 10:45 Chief complaint: Patient states: "30 minutes ago, I inhaled Aqucar and my chest is mb9 burning, and my eyes were burning, My lungs and esophagus hurt.". Coronavirus screen: At this time, the client does not indicate any symptoms associated with coronavirus-19. Ebola Screen: No symptoms or risks identified at this time. Initial Sepsis Screen: Does the patient meet any 2 criteria? No. Patient's initial sepsis screen is negative. Does the patient have a suspected source of infection? No. Patient's initial sepsis screen is negative. Risk Assessment: Do you want to hurt yourself or someone else? Patient reports no desire to harm self or others. Onset of symptoms was November 28, 2023. 10:45 Acuity: JAMIL 3 mb9 10:45 Method Of Arrival: Ambulatory mb9 Triage Assessment: 10:47 General: Appears uncomfortable, Behavior is cooperative, anxious. Pain: Complains of mb9 pain in chest, mouth and neck. Neuro: Level of Consciousness is awake, alert, obeys commands, Oriented to person, place, time, situation, Appropriate for age. Historical: - Allergies: 10:46 No Known Allergies; mb9 - Home Meds: 10:46 None [Active]; mb9 - PMHx: 10:46 Asthma; Hypertensive disorder; mb9 - PSHx: 10:46 None; mb9 - Immunization history:: Adult Immunizations up to date. - Infectious Disease History:: Denies. - Social history:: Smoking status: Reported history of juuling and/or vaping. - Family history:: not pertinent. Screenin:29 [facility] ED Fall Risk Assessment (Adult) History of falling in the last 3 months, bp including since admission No falls in past 3 months (0 pts) Confusion or Disorientation No (0 pts) Intoxicated or Sedated No (0 pts) Impaired Gait No (0 pts) Mobility Assist Device Used No (0 pt) Altered Elimination No (0 pt) Score/Fall Risk Level 0 - 2 = Low Risk. Abuse screen: Denies threats or abuse. Denies injuries from another. Nutritional screening: No deficits noted. Tuberculosis screening: No symptoms or risk factors identified. Assessment: 12:30 Cardiovascular: Rhythm is sinus rhythm. Respiratory: Airway is patent Respiratory bp effort is even, unlabored, Breath sounds are clear bilaterally. Vital Signs: 10:45 BP 165 / 98; Pulse 80; Resp 18; Temp 97.5; Pulse Ox 100% on R/A; Weight 99.79 kg; mb9 Height 6 ft. 1 in. ; 12:30 BP 147 / 79; Pulse 75; Resp 16; Pulse Ox 100% ; bp 10:45 Body Mass Index 29.03 (99.79 kg, 185.42 cm) mb9 ED Course: 10:42 Patient arrived in ED. mr 10:44 Angel Cole MD is Attending Physician. kimani 10:46 Triage completed. mb9 10:47 Arm band placed on. mb9 10:48 Jaylon Roque, RN is Primary Nurse. bp 12:11 Chest Pa And Lat (2 Views) XRAY In Process Unspecified. EDMS 12:16 Yobani Turpin MD is Referral Physician. kimani 12:29 Patient has correct armband on for positive identification. bp 12:29 No provider procedures requiring assistance completed. Patient did not have IV access bp during this emergency room visit. Administered Medications: 11:35 Drug: Levalbuterol Inhalation 1.25 mg Inhalation once Route: Inhalation; bp 11:35 Drug: Ipratropium Inhalation Aerosol 0.5 mg Inhalation once Route: Inhalation; bp 11:35 Drug: GI Cocktail without - (Maalox PO 30 ml, Lidocaine Mucous Membrane 2 % 15 bp ml) PO once Route: PO; 12:31 Follow up: Response: No adverse reaction bp 12:19 Drug: predniSONE PO 40 mg PO once Route: PO; bp 12:30 Follow up: Response: No adverse reaction bp Outcome: 12:16 Discharge ordered by . kimani 12:29 Discharged to home ambulatory, bp 12:29 Condition: stable 12:29 Discharge instructions given to patient, Instructed on discharge instructions, follow up and referral plans. medication usage, Demonstrated understanding of instructions, follow-up care, medications, Prescriptions given X 4, 12:31 Patient left the ED. bp Signatures: Dispatcher [employer] EDMS Douglas, Angel, MD MD kimani Castellanos, [facility], [facility] Jayoln Cunha, YARA RN Renita Rico RN RN mb9
[2023-11-28] MEDS ORDERED: predniSONE 20 MG TAB ONE (12:25)
[2023-11-30 17:07] VITALS: BP 147/79; TEMP 97.5; O2SAT 100
== END 2023-11-28 12:31 | disposition home or self-care (01) ==
LOC: ER 10:40
DX: J84.114 Acute interstitial pneumonitis (principal); T59.891A Toxic effect of other specified gases, fumes and vapors, accidental (unintentional), initial encounter; J45.909 Unspecified asthma, uncomplicated; F17.290 Nicotine dependence, other tobacco product, uncomplicated; I10 Essential (primary) hypertension
CPT/HCPCS: 71046; 99284; J7512; J7614; J7644

== ENCOUNTER 2024-01-24 15:25 | Emergency (ER) | payer BC ==
[2024-01-24 16:53] LABS: Absolute Eosinophils 0.2 K/uL (0-0.5); Absolute Lymphocytes (CBC) 1.7 K/uL (0.7-4.9); Absolute Monocytes 0.5 K/uL (0.1-1.3); Absolute Neutrophil 2.7 K/uL (1.8-8.0); Basophils % 0.5 % (0-1.3); Eosinophils % 3.5 % (0-4.4); Hematocrit 45.1 % (39.6-49.0); Hemoglobin 15.4 g/dL (13.6-17.9); Lymphocytes % 33.2 % (15.3-44.8); MCH 28.6 pg (27.0-35.0); MCHC 34.2 g/dL (32.0-36.0); MCV 83.5 fL (80-100); MPV 9.8 fL (7.6-11.3); Monocytes % 10.2 % (3.3-12.3); Neutrophils % 52.6 % (41.7-73.7); Platelets 144 thou/uL (152-406); Red Cell Distribution Width 12.9 % (12.1-15.2)
[2024-01-24 17:08] LABS: Albumin 3.9 g/dL (3.4-5.0); Albumin/Globulin Ratio 1.1 (1.1-1.8); Bilirubin Total 0.4 mg/dL (0.2-1.0); Globulin 3.5 g/dL (2.3-3.5); Protein, Total 7.4 g/dL (6.4-8.2)
[2024-01-24] MEDS ORDERED: KETOROLAC 30 MG/ML INJ ONE (17:08)
[2024-01-24] MEDS ORDERED: NA CHLORIDE 0.9% 1,000 ML ONE (17:09)
[2024-01-24 17:21] LABS: Specific Gravity 1.021 (1.005-1.030); Sqamous Epithelial None Seen /HPF (None Seen); Urine Bacteria None Seen /HPF (<20); Urine Bilirubin NEGATIVE (Negative); Urine Blood Negative (Negative); Urine Clarity Extremely Turbid (Clear); Urine Color Yellow (Yellow); Urine Culture Reflex Order NOT NEEDED; Urine Glucose NEGATIVE (Negative); Urine Ketones NEGATIVE (Negative); Urine Microscopic Reflex YN ORDER UMIC; Urine Nitrite NEGATIVE (Negative); Urine Protein NEGATIVE (Negative); Urine RBC <5 /HPF (None Seen); Urine Urobilinogen Normal (Normal); Urine WBC <5 /HPF (<5)
--- NOTE | 2024-01-24 17:54 | RAD REPORT ---
EXAMINATION: CT ABDOMEN AND PELVIS WITH CONTRAST CLINICAL INDICATION: Abdominal pain TECHNIQUE: CT abdomen and pelvis was performed, after the adminis tration of 100 cc Isovue-300.. Oral contrast requested which limits evaluation bowel Sagittal and coronal reconstructions were obtained. One or more of the following dose reduction techn iques were used: Automated exposure control, adjustment of the mA and/or kV according to patient size, and/or iterative reconstruction. Unless otherwise specified, incidental findings do not requir e dedicated imaging follow-up. [id number]. COMPARISON: 2019 FINDINGS: The liver, pancreas, adrenals and kidneys appear unremarkable The spleen measures 14 cm There is no evidence of diverticulitis Small ventral hernia. Small bilateral hernias containing fat : IMPRESSION: Mild splenomegaly
--- NOTE | 2024-01-24 18:33 | ER ---
Nurse's Notes [facility] Name: Bulmaro Pickering Age: 33 yrs Sex: Male : 1990 Arrival Date: 01/24/2024 Time: 15:25 Bed 26 Private MD: Diagnosis: Ventral hernia without obstruction or gangrene;Abdominal pain, unspecified Presentation: 01/23 16:03 Chief complaint: Patient states: starting yesterday, pain to the left of my belly tm6 button, keeps getting worse. Coronavirus screen: Vaccine status: Patient reports being unvaccinated. Ebola Screen: Patient negative for fever greater than or equal to 101.5 degrees Fahrenheit, and additional compatible Ebola Virus Disease symptoms Patient denies exposure to infectious person. Patient denies travel to an Ebola-affected area in the 21 days before illness onset. No symptoms or risks identified at this time. Initial Sepsis Screen: Does the patient meet any 2 criteria? No. Patient's initial sepsis screen is negative. Does the patient have a suspected source of infection? No. Patient's initial sepsis screen is negative. Risk Assessment: Do you want to hurt yourself or someone else? Patient reports no desire to harm self or others. Onset of symptoms was January 23, 2024. 16:03 Method Of Arrival: Ambulatory tm6 16:03 Acuity: JAMIL 3 tm6 Triage Assessment: 16:04 General: Appears uncomfortable, Behavior is calm, cooperative. Pain: Complains of pain tm6 in umbilical area Pain currently is 2 out of 10 on a pain scale. Quality of pain is described as stabbing, Pain began 1 day ago. Pain: Aggravated by increased activity, repositioning. EENT: No signs and/or symptoms were reported regarding the EENT system. Neuro: Level of Consciousness is awake, alert, obeys commands, Oriented to person, place, time, situation. Cardiovascular: Patient's skin is warm and dry. Respiratory: Airway is patent Respiratory effort is even, unlabored, Respiratory pattern is regular, symmetrical. GI: Abdomen is flat, non-distended, Reports epigastric pain. : No signs and/or symptoms were reported regarding the genitourinary system. Derm: No signs and/or symptoms reported regarding the dermatologic system. Musculoskeletal: No signs and/or symptoms reported regarding the musculoskeletal system. Historical: - Allergies: 16:04 No Known Allergies; tm6 - PMHx: 16:04 Asthma; Hypertensive disorder; tm6 - PSHx: 16:04 None; tm6 - Immunization history:: Client reports having NOT received the Covid vaccine. - Infectious Disease History:: Denies. - Social history:: Smoking status: Patient denies any tobacco usage or history of. Screenin:21 [facility] ED Fall Risk Assessment (Adult) History of falling in the last 3 months, tl4 including since admission No falls in past 3 months (0 pts) Confusion or Disorientation No (0 pts) Intoxicated or Sedated No (0 pts) Impaired Gait No (0 pts) Mobility Assist Device Used No (0 pt) Altered Elimination No (0 pt) Score/Fall Risk Level 0 - 2 = Low Risk Oriented to surroundings, Maintained a safe environment, Educated pt \T\ family on fall prevention, incl call for assistance when getting out of bed, Assessed \T\ reinforced patient's understanding of fall precautions. Abuse screen: Denies threats or abuse. Denies injuries from another. Nutritional screening: No deficits noted. Tuberculosis screening: No symptoms or risk factors identified. Assessment: 17:19 General: Appears in no apparent distress. Behavior is calm, cooperative. Pain: tl4 Complains of pain in left lower quadrant Pain does not radiate. Neuro: Level of Consciousness is awake, alert, obeys commands, Oriented to person, place, time, situation. Cardiovascular: Capillary refill < 3 seconds Patient's skin is warm and dry. Respiratory: Airway is patent Respiratory effort is even, unlabored, Respiratory pattern is regular, symmetrical, Breath sounds are clear bilaterally. GI: Bowel sounds present X 4 quads. Abd is soft and non tender X 4 quads. Reports lower abdominal pain, Patient currently denies diarrhea, nausea, vomiting. : No signs and/or symptoms were reported regarding the genitourinary system. EENT: No signs and/or symptoms were reported regarding the EENT system. Musculoskeletal: No signs and/or symptoms reported regarding the musculoskeletal system. Vital Signs: 16:03 BP 131 / 93; Pulse 79; Resp 18; Temp 98.5(O); Pulse Ox 99% on R/A; MAP 105 mmHg; Weight tm6 102.06 kg; Height 6 ft. 2 in. ; Pain 2/10; 17:21 BP 123 / 76; Pulse 68; Resp 16; Pulse Ox 100% ; Pain 6/10; tl4 18:41 BP 119 / 75; Pulse 70; Resp 19; Temp 98.7(O); Pulse Ox 99% on R/A; tl4 16:03 Body Mass Index 28.89 (102.06 kg, 187.96 cm) tm6 16:03 Pain Scale: Adult tm6 17:21 Pain Scale: Adult tl4 ED Course: 15:27 Patient arrived in ED. mg5 15:30 Angel Waddell PA is PHCP. cp 15:30 Angel Cole MD is Attending Physician. cp 16:04 Triage completed. tm6 16:04 Arm band placed on right wrist. tm6 16:41 CBC with Diff Sent. bc6 16:41 CMP Sent. bc6 16:41 Lipase Sent. bc6 16:41 Urinalysis w/ reflexes Sent. bc6 16:41 Initial lab(s) drawn, by mo, sent to lab. Urine collected: clean catch specimen, brett bc6 colored. Inserted saline lock: 20 gauge in left antecubital area, using aseptic technique. Blood collected. Flushed with 10 mL NS. 17:07 Eligio Jules, RN is Primary Nurse. tl4 17:22 Patient has correct armband on for positive identification. Placed in gown. Bed in low tl4 position. Call light in reach. Side rails up X 1. Provided Education on: ed process, call watters. Client placed on continuous cardiac and pulse oximetry monitoring. NIBP monitoring applied. Door closed. Noise minimized. Lights dimmed. Moved to private room. Warm blanket given. 17:22 No provider procedures requiring assistance completed. tl4 17:40 CT Abd/Pelvis - IV Contrast Only In Process Unspecified. EDMS 18:31 Atif Pop MD is Referral Physician. cp 18:41 IV discontinued, intact, bleeding controlled, No redness/swelling at site. Pressure tl4 dressing applied. Administered Medications: 17:19 Drug: NS 0.9% IV 1000 ml IV at 1 bolus Per protocol; 1000 mL bolus Route: IV; Rate: 1 tl4 bolus; Site: left antecubital; Delivery: Primary tubing; 18:40 Follow up: Response: No adverse reaction; IV Status: Completed infusion; IV Intake: tl4 1000ml 17:19 Drug: TORadol - Ketorolac IVP 15 mg IVP once Route: IVP; Site: left antecubital; tl4 18:40 Follow up: Response: No adverse reaction; Pain is decreased tl4 Medication: 17:21 VIS not applicable for this client. tl4 Intake: 18:40 IV: 1000ml; Total: 1000ml. tl4 Outcome: 18:32 Discharge ordered by MD. cp 18:41 Discharged to home ambulatory, tl4 18:41 Condition: stable 18:41 Discharge instructions given to patient, Instructed on discharge instructions, follow up and referral plans. medication usage, Demonstrated understanding of instructions, follow-up care, medications, Prescriptions given X 1, 18:51 Patient left the ED. tl4 Signatures: Dispatcher [employer] EDMS Angel Waddell PA PA cp Carowatson, Breana 6 Karolina Koch mg5 Kandis Goetz RN RN tm6 Eligio Jules RN RN tl4
--- NOTE | 2024-01-24 18:33 | EDPHYS ---
Physician Documentation [facility] Name: Bulmaro Pickering Age: 33 yrs Sex: Male : 1990 Arrival Date: 01/24/2024 Time: 15:25 Bed 26 Private MD: Angel Ray HPI: 01/23 16:20 This 33 yrs old Male presents to ER via Ambulatory with complaints of Abdominal Pain. cp 16:20 The patient presents with abdominal pain in the periumbilical area. Onset: The cp symptoms/episode began/occurred yesterday, and became worse today. The symptoms do not radiate. Associated signs and symptoms: Pertinent negatives: chest pain, constipation, diarrhea, dysuria, fever, testicular pain, vomiting. The symptoms are described as constant. Historical: - Allergies: 16:04 No Known Allergies; tm6 - PMHx: 16:04 Asthma; Hypertensive disorder; tm6 - PSHx: 16:04 None; tm6 - Immunization history:: Client reports having NOT received the Covid vaccine. - Infectious Disease History:: Denies. - Social history:: Smoking status: Patient denies any tobacco usage or history of. ROS: 16:25 Constitutional: Negative for body aches, chills, fever, poor PO intake, cp 16:25 Eyes: Negative for injury, pain, redness, and discharge, cp 16:25 ENT: Negative for drainage from ear(s), ear pain, sore throat, difficulty swallowing, difficulty handling secretions, 16:25 Cardiovascular: Negative for chest pain, palpitations, 16:25 Respiratory: Negative for cough, shortness of breath, wheezing, 16:25 Abdomen/GI: Positive for abdominal pain, Negative for vomiting, diarrhea, constipation, anorexia, 16:25 Back: Negative for pain at rest, pain with movement, 16:25 Neuro: Negative for altered mental status, dizziness, headache, weakness, 16:25 All other systems are negative, Exam: 16:30 Constitutional: The patient appears in no acute distress, alert, awake, cp non-diaphoretic, non-toxic, well developed, well nourished, 16:30 Head/Face: Normocephalic, atraumatic. cp 16:30 Eyes: Periorbital structures: appear normal, Conjunctiva: normal, no exudate, no injection, Sclera: no appreciated abnormality, Lids and lashes: appear normal, bilaterally, 16:30 ENT: External ear(s): are unremarkable, Nose: is normal, Mouth: Lips: moist, Oral mucosa: moist, Posterior pharynx: Airway: no evidence of obstruction, patent, 16:30 Chest/axilla: Inspection: normal, 16:30 Cardiovascular: Rate: normal, Rhythm: regular, 16:30 Respiratory: the patient does not display signs of respiratory distress, Respirations: normal, no use of accessory muscles, no retractions, labored breathing, is not present, Breath sounds: are clear throughout, no decreased breath sounds, no stridor, no wheezing, 16:30 Abdomen/GI: Inspection: abdomen appears normal, Bowel sounds: active, all quadrants, Palpation: soft, in all quadrants, mild abdominal tenderness, in the umbilical area, rebound tenderness, is not appreciated, involuntary guarding, is not appreciated, 16:30 Back: pain, is absent, ROM is normal, Vital Signs: 16:03 BP 131 / 93; Pulse 79; Resp 18; Temp 98.5(O); Pulse Ox 99% on R/A; MAP 105 mmHg; Weight tm6 102.06 kg; Height 6 ft. 2 in. ; Pain 2/10; 17:21 BP 123 / 76; Pulse 68; Resp 16; Pulse Ox 100% ; Pain 6/10; tl4 18:41 BP 119 / 75; Pulse 70; Resp 19; Temp 98.7(O); Pulse Ox 99% on R/A; tl4 16:03 Body Mass Index 28.89 (102.06 kg, 187.96 cm) tm6 16:03 Pain Scale: Adult tm6 17:21 Pain Scale: Adult tl4 MDM: 16:11 Patient medically screened. cp 17:00 Differential diagnosis: appendicitis, non-specific abd pain, pancreatitis, cp Pyelonephritis, Ureterolithiasis, urinary tract infection, hernia. 18:32 Data reviewed: vital signs, nurses notes, lab test result(s), radiologic studies, CT cp scan, and as a result, I will discharge patient. 18:32 Counseling: I had a detailed discussion with the patient and/or guardian regarding the cp historical points, exam findings, and any diagnostic results supporting the discharge/admit diagnosis, lab results, radiology results, the need for outpatient follow up, a general surgeon, to return to the emergency department if symptoms worsen or persist or if there are any questions or concerns that arise at home. Response to treatment: the patient's symptoms have mildly improved after treatment, and as a result, I will discharge patient. 01/23 16:16 Order name: CBC with Diff; Complete Time: 18:04 cp 01/23 18:04 Interpretation: Normal except: PLT 144. cp 01/23 16:16 Order name: CMP; Complete Time: 18:04 cp 01/23 16:16 Order name: Lipase; Complete Time: 18:04 cp 01/23 16:16 Order name: Urinalysis w/ reflexes; Complete Time: 18:04 cp 01/23 16:16 Order name: CT Abd/Pelvis - IV Contrast Only; Complete Time: 18:04 cp 01/23 16:16 Order name: IV Saline Lock; Complete Time: 16:41 cp 01/23 16:16 Order name: Labs collected and sent; Complete Time: 16:41 cp Administered Medications: 17:19 Drug: NS 0.9% IV 1000 ml IV at 1 bolus Per protocol; 1000 mL bolus Route: IV; Rate: 1 tl4 bolus; Site: left antecubital; Delivery: Primary tubing; 18:40 Follow up: Response: No adverse reaction; IV Status: Completed infusion; IV Intake: tl4 1000ml 17:19 Drug: TORadol - Ketorolac IVP 15 mg IVP once Route: IVP; Site: left antecubital; tl4 18:40 Follow up: Response: No adverse reaction; Pain is decreased tl4 Disposition Summary: 01/24/24 18:32 Discharge Ordered Notes: Location: Home cp Problem: new cp Symptoms: have improved cp Condition: Stable cp Diagnosis - Ventral hernia without obstruction or gangrene cp - Abdominal pain, unspecified cp Followup: cp - With: Atif Pop MD - When: 2 - 3 days - Reason: hernia Discharge Instructions: - Discharge Summary Sheet cp - Abdominal Pain, Adult cp - Ventral Hernia cp Forms: - Work release form iw - Medication Reconciliation Form cp - Antibiotic Education cp - Prescription Opioid Use cp - Patient Portal Instructions cp - Leadership Thank You Letter cp Prescriptions: - Ibuprofen 800 mg Oral Tablet - take 1 tablet ORAL route every 8 hours As needed take with food; 30 tablet; cp Refills: 0, Product Selection Permitted Signatures: Dispatcher [employer] EDMS Angel Waddell PA PA cp Masterson, Tawney RN RN tm6 Eligio Jules RN RN tl4 Corrections: (The following items were deleted from the chart) 16:16 16:16 CBC+H.LAB.BRZ ordered. EDMS EDMS 16:16 16:16 COMPREHENSIVE METABOLIC PANEL+C.LAB.BRZ ordered. EDMS EDMS 16:16 16:16 LIPASE+C.LAB.BRZ ordered. EDMS EDMS 16:16 16:16 Urinalysis+U.LAB.BRZ ordered. EDMS EDMS 16:16 16:16 Abdomen Pelvis W Con+CT.RAD.BRZ ordered. EDMS EDMS
[2024-01-24 19:13] VITALS: BP 119/75; TEMP 98.7; O2SAT 99
== END 2024-01-24 18:51 | disposition home or self-care (01) ==
LOC: ER 15:25
DX: K43.9 Ventral hernia without obstruction or gangrene (principal); I10 Essential (primary) hypertension; J45.909 Unspecified asthma, uncomplicated
CPT/HCPCS: 96361; 85025; 81001; 36415; 83690; 80053; 74177; 96374; 99284; Q9967; J7030

== ENCOUNTER 2024-05-31 20:24 | Emergency (ER) | payer BC ==
[2024-05-31] MEDS ORDERED: TRANEXAMIC ACID 1,000 MG/10 ML VIAL IV ONE (21:41)
[2024-05-31] MEDS ORDERED: MORPHINE 4 MG/ML SYR ONE (21:41)
[2024-05-31] MEDS ORDERED: ONDANSETRON 4 MG/2 ML VIAL ONE (21:41)
[2024-05-31] MEDS ORDERED: NA CHLORIDE 0.9% 1,000 ML ONE (21:42)
[2024-05-31] MEDS ORDERED: NA CHLORIDE 0.9% 100 ML ONE (21:42)
[2024-05-31 21:46] LABS: Absolute Basophils 0.1 K/uL (0-0.5); Absolute Eosinophils 0.2 K/uL (0-0.5); Absolute Lymphocytes (CBC) 1.7 K/uL (0.7-4.9); Absolute Monocytes 0.7 K/uL (0.1-1.3); Absolute Neutrophil 8.1 K/uL (1.8-8.0); Basophils % 0.6 % (0-1.3); Eosinophils % 1.6 % (0-4.4); Hematocrit 41.1 % (39.6-49.0); Hemoglobin 14.6 g/dL (13.6-17.9); Lymphocytes % 15.7 % (15.3-44.8); MCH 28.8 pg (27.0-35.0); MCHC 35.4 g/dL (32.0-36.0); MCV 81.4 fL (80-100); MPV 9.1 fL (7.6-11.3); Monocytes % 6.8 % (3.3-12.3); Neutrophils % 75.3 % (41.7-73.7); Nucleated Red Blood Cells % 0.1 % (0-0); Platelets 176 thou/uL (152-406); RBC Red Blood Cell Count 5.05 M/uL (4.33-5.43); Red Cell Distribution Width 12.9 % (12.1-15.2)
[2024-05-31 21:51] LABS: Protime INR 1.14
[2024-05-31 22:04] LABS: Albumin 4.1 g/dL (3.4-5.0); Albumin/Globulin Ratio 1.3 (1.1-1.8); Anion Gap 8.7 mEq/L (5.0-15.0); Bilirubin Total 0.7 mg/dL (0.2-1.0); Globulin 3.1 g/dL (2.3-3.5); Potassium 3.7 mEq/L (3.5-5.1); Protein, Total 7.2 g/dL (6.4-8.2)
[2024-05-31] MEDS ORDERED: LIDOCAINE 2% W/EPI 1:200,000 MPF 20 ML VIAL IM ONE (23:05)
--- NOTE | 2024-05-31 23:19 | ER ---
Nurse's Notes [facility] Name: Bulmaro Pickering Age: 33 yrs Sex: Male : 1990 Arrival Date: 05/31/2024 Time: 20:24 Bed 15 Private MD: Diagnosis: Postprocedural hemorrhage of skin and subcutaneous tissue following other procedure-dental extraction Presentation: 05/31 20:30 Chief complaint: EMS states: bleeding clots in mouth from teeth extraction. Coronavirus kj2 screen: Client denies travel out of the [place] in the last 14 days. Ebola Screen: No symptoms or risks identified at this time. Initial Sepsis Screen: Does the patient meet any 2 criteria? No. Patient's initial sepsis screen is negative. Does the patient have a suspected source of infection? No. Patient's initial sepsis screen is negative. Risk Assessment: Do you want to hurt yourself or someone else? Patient reports no desire to harm self or others. Onset of symptoms was May 31, 2024. 20:30 Method Of Arrival: EMS: [facility] kj2 20:30 Acuity: JAMIL 3 kj2 Triage Assessment: 20:30 General: Appears in no apparent distress. uncomfortable, Behavior is cooperative. Pain: kj2 Complains of pain in left side of mouth Pain currently is 8 out of 10 on a pain scale. 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 - Infectious Disease History:: Denies. - Social history:: Smoking status: unknown. - Family history:: not pertinent. Screenin:30 [facility] ED Fall Risk Assessment (Adult) History of falling in the last 3 months, kj2 including since admission No falls in past 3 months (0 pts) Confusion or Disorientation No (0 pts) Intoxicated or Sedated No (0 pts) Impaired Gait No (0 pts) Mobility Assist Device Used No (0 pt) Altered Elimination No (0 pt) Score/Fall Risk Level 0 - 2 = Low Risk Maintained a safe environment, Hourly rounding (assess needs \T\ fall precautionary measures) done. Abuse screen: Denies threats or abuse. Denies injuries from another. Nutritional screening: No deficits noted. Tuberculosis screening: No symptoms or risk factors identified. Assessment: 20:30 General: call light. kj2 21:57 Reassessment: Patient appears in no apparent distress at this time. Patient and/or kj2 family updated on plan of care and expected duration. Pain level reassessed. Patient is alert, oriented x 3, equal unlabored respirations, skin warm/dry/pink. Vital Signs: 20:30 BP 132 / 98; Pulse 73; Resp 20; Pulse Ox 98% ; kj2 20:43 BP 132 / 95 LA (auto/); Pulse 69; Temp 98.1(TE); Pulse Ox 100% on R/A; sa1 21:56 BP 126 / 85; Pulse 67; Resp 20; Pulse Ox 97% ; kj2 22:22 Weight 106.14 kg; Height 6 ft. 1 in. ; kj2 06/01 00:11 BP 148 / 96; Pulse 76; Resp 18; Pulse Ox 96% ; cp4 05/31 22:22 Body Mass Index 30.87 (106.14 kg, 185.42 cm) kj2 ED Course: 05/31 20:28 Patient arrived in ED. jj6 20:30 Patient has correct armband on for positive identification. Bed in low position. Call kj2 light in reach. Provided Education on: call light. 20:38 Katharina Arroyo, YARA is Primary Nurse. kj2 20:52 Angel Cole MD is Attending Physician. [facility] 21:07 Triage completed. kj2 21:09 Arm band placed on. kj2 21:10 No provider procedures requiring assistance completed. kj2 21:20 Inserted saline lock: 20 gauge in right antecubital area, using aseptic technique. kj2 Blood collected. Flushed with 10 mL NS. 23:29 Initiated transfer to [facility], spoke with Augustin Mascorro. accepted pt sp to ER, Report #[id number]. [facility] transported. 06/01 00:32 Patient transferred, IV remains in place. cp4 Administered Medications: 05/31 21:53 Drug: NS 0.9% IV 1000 ml IV at 1000 ml once; to be given as a bolus over 60 minutes kj2 Route: IV; Rate: 1000 ml; Site: right antecubital; 23:57 Follow up: Response: No adverse reaction; IV Status: Completed infusion cp4 21:55 Drug: tranexamic acid 1000 mg IV at per protocol once; administer at a rate not to kj2 exceed 100 mg per min Route: IV; Rate: per protocol; Site: right antecubital; 22:05 Follow up: IV Status: Completed infusion; IV Intake: 100ml kj2 21:55 Drug: morphine IVP or IV 4 mg IVP once over 4 mins Route: IVP; Infused Over: 4 mins; kj2 Site: right antecubital; 22:31 Follow up: Response: No adverse reaction kj2 21:55 Drug: Ondansetron IVP 4 mg IVP once; over 2 minutes Route: IVP; Site: right antecubital;kj2 22:31 Follow up: Response: No adverse reaction kj2 23:25 Drug: Rocephin IV 1 grams IV at per protocol once; Given slow IV push per pharmacy cp4 instructions Route: IV; Rate: per protocol; Site: right antecubital; 23:57 Follow up: Response: No adverse reaction; IV Status: Completed infusion cp4 Medication: 21:10 VIS not applicable for this client. kj2 Intake: 22:05 IV: 100ml; Total: 100ml. kj2 Outcome: 23:18 ER care complete, transfer ordered by MD. harman 06/01 00:32 Transferred by ground EMS to [facility], Transfer form completed. X-rays sent cp4 w/ patient. Condition: stable Instructed on the need for transfer, 00:33 Patient left the ED. cp4 Signatures: Angel Cole MD MD cha Pinkerton, Shawna sp Jeffries, Jennifer jj6 Potter, Christina cp4 Sultan germania Alvarado Krystal, RN RN kj2 Corrections: (The following items were deleted from the chart) 02:05/31 23:29 accepted pt to ER, Report #[id number]. [facility] sp transported. sp
--- NOTE | 2024-05-31 23:19 | EDPHYS ---
Physician Documentation [facility] Name: Bulmaro Pickering Age: 33 yrs Sex: Male : 1990 Arrival Date: 05/31/2024 Time: 20:24 Bed 15 Private MD: ED Physician Angel Cole HPI: 05/31 23:13 This 33 yrs old Male presents to ER via EMS with complaints of Post Surgical kimani Bleeding. 23:13 The patient presents with bleeding, pain. The problem is located in the lower left kimani first molar. Onset: The symptoms/episode began/occurred today. Duration: The symptoms are continuous, and are unchanged since they started. Modifying factors: The symptoms are alleviated by nothing, the symptoms are aggravated by nothing. Associated signs and symptoms: The patient has no apparent associated signs or symptoms. Severity of symptoms: At their worst the symptoms were moderate, in the emergency department the symptoms are unchanged. The patient has not experienced similar symptoms in the past. 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 - Infectious Disease History:: Denies. - Social history:: Smoking status: unknown. - Family history:: not pertinent. ROS: 23:13 Constitutional: Negative for fever, chills, and weight loss, Eyes: Negative for injury, kimani pain, redness, and discharge, Neck: Negative for injury, pain, and swelling, Cardiovascular: Negative for chest pain, palpitations, and edema, Respiratory: Negative for shortness of breath, cough, wheezing, and pleuritic chest pain, Abdomen/GI: Negative for abdominal pain, nausea, vomiting, diarrhea, and constipation, Back: Negative for injury and pain, : Negative for injury, bleeding, discharge, and swelling, MS/Extremity: Negative for injury and deformity, Skin: Negative for injury, rash, and discoloration, Neuro: Negative for headache, weakness, numbness, tingling, and seizure, Psych: Negative for depression, anxiety, suicide ideation, homicidal ideation, and hallucinations, Allergy/Immunology: Negative for hives, rash, and allergies, Endocrine: Negative for neck swelling, polydipsia, polyuria, polyphagia, and marked weight changes, Hematologic/Lymphatic: Negative for swollen nodes, abnormal bleeding, and unusual bruising, 23:13 ENT: Positive for Gum pain Exam: 23:13 Constitutional: This is a well developed, well nourished patient who is awake, alert, kimani and in no acute distress. Head/Face: Normocephalic, atraumatic. Eyes: Pupils equal round and reactive to light, extra-ocular motions intact. Lids and lashes normal. Conjunctiva and sclera are non-icteric and not injected. Cornea within normal limits. Periorbital areas with no swelling, redness, or edema. Neck: Trachea midline, no thyromegaly or masses palpated, and no cervical lymphadenopathy. Supple, full range of motion without nuchal rigidity, or vertebral point tenderness. No Meningismus. Chest/axilla: Normal chest wall appearance and motion. Nontender with no deformity. No lesions are appreciated. Cardiovascular: Regular rate and rhythm with a normal S1 and S2. No gallops, murmurs, or rubs. Normal PMI, no JVD. No pulse deficits. Respiratory: Lungs have equal breath sounds bilaterally, clear to auscultation and percussion. No rales, rhonchi or wheezes noted. No increased work of breathing, no retractions or nasal flaring. Abdomen/GI: Soft, non-tender, with normal bowel sounds. No distension or tympany. No guarding or rebound. No evidence of tenderness throughout. Back: No spinal tenderness. No costovertebral tenderness. Full range of motion. Male : Normal genitalia with no discharge or lesions. Skin: Warm, dry with normal turgor. Normal color with no rashes, no lesions, and no evidence of cellulitis. MS/ Extremity: Pulses equal, no cyanosis. Neurovascular intact. Full, normal range of motion., bilateral aka Neuro: Awake and alert, GCS 15, oriented to person, place, time, and situation. Cranial nerves II-XII grossly intact. Motor strength 5/5 in all extremities. Sensory grossly intact. Cerebellar exam normal. Normal gait. Psych: Awake, alert, with orientation to person, place and time. Behavior, mood, and affect are within normal limits. 23:13 ENT: Mouth: Oral mucosa: normal, Gums: bleeding, Tongue: is normal, abscess, is not appreciated, Vital Signs: 20:30 BP 132 / 98; Pulse 73; Resp 20; Pulse Ox 98% ; kj2 20:43 BP 132 / 95 LA (auto/); Pulse 69; Temp 98.1(TE); Pulse Ox 100% on R/A; sa1 21:56 BP 126 / 85; Pulse 67; Resp 20; Pulse Ox 97% ; kj2 22:22 Weight 106.14 kg; Height 6 ft. 1 in. ; kj2 06/01 00:11 BP 148 / 96; Pulse 76; Resp 18; Pulse Ox 96% ; cp4 05/31 22:22 Body Mass Index 30.87 (106.14 kg, 185.42 cm) kj2 MDM: 05/31 20:52 Medical Screening Exam initiated [facility] 23:16 Differential diagnosis: dental caries, gingivitis, dental abscess. Data reviewed: vital [facility] signs, nurses notes, lab test result(s). Consideration of Admission/Observation Escalation of care including admission/observation considered. I considered the following discharge prescriptions or medication management in the emergency department Medications were administered in the Emergency Department. See MAR. Test considered but Not performed: CT: no ct facial/max face. Historians other than the Patient: Spouse/Significant Other: well informed. Care significantly affected by the following chronic conditions: Hypertension, Obesity, asthma. 05/31 20:55 Order name: CBC with Diff; Complete Time: 22:28 [facility] 05/31 20:55 Order name: Comprehensive Metabolic Panel; Complete Time: 22:28 [facility] 05/31 20:55 Order name: PT-INR; Complete Time: 22:28 [facility] Administered Medications: 21:53 Drug: NS 0.9% IV 1000 ml IV at 1000 ml once; to be given as a bolus over 60 minutes kj2 Route: IV; Rate: 1000 ml; Site: right antecubital; 23:57 Follow up: Response: No adverse reaction; IV Status: Completed infusion 4 21:55 Drug: tranexamic acid 1000 mg IV at per protocol once; administer at a rate not to kj2 exceed 100 mg per min Route: IV; Rate: per protocol; Site: right antecubital; 22:05 Follow up: IV Status: Completed infusion; IV Intake: 100ml kj2 21:55 Drug: morphine IVP or IV 4 mg IVP once over 4 mins Route: IVP; Infused Over: 4 mins; kj2 Site: right antecubital; 22:31 Follow up: Response: No adverse reaction 2 21:55 Drug: Ondansetron IVP 4 mg IVP once; over 2 minutes Route: IVP; Site: right antecubital;kj2 22:31 Follow up: Response: No adverse reaction kj2 23:25 Drug: Rocephin IV 1 grams IV at per protocol once; Given slow IV push per pharmacy cp4 instructions Route: IV; Rate: per protocol; Site: right antecubital; 23:57 Follow up: Response: No adverse reaction; IV Status: Completed infusion cp4 Disposition Summary: 05/31/24 23:18 Transfer Ordered Notes: Transfer Location: [facility] Reason: Higher level of care kimani Condition: Fair kimani Problem: new kimani Symptoms: are unchanged kimani Accepting Physician: to [facility](06/01/24 00:33) cp4 Diagnosis - Postprocedural hemorrhage of skin and subcutaneous tissue following other procedure kimani - dental extraction Forms: - Medication Reconciliation Form kimani - SBAR form kimani Signatures: Dispatcher [employer] EDAngel Mackenzie MD MD cha Potter, Christina cp4 Katharina Arroyo RN RN kj2 Corrections: (The following items were deleted from the chart) 06/01 00:33 05/31 23:18 to [facility] cp4
[2024-05-31] MEDS ORDERED: CEFTRIAXONE 1000 MG/VIAL ONE (23:20)
[2024-05-31] MEDS ORDERED: NA CHLORIDE 0.9% 50 ML ONE (23:21)
[2024-06-01 04:18] VITALS: TEMP 98.1
[2024-06-01 04:38] VITALS: BP 148/96; O2SAT 96
== END 2024-06-01 00:33 | disposition short-term general hospital (02) ==
LOC: ER 20:24
DX: K91.841 Postprocedural hemorrhage of a digestive system organ or structure following other procedure (principal); Z98.818 Other dental procedure status
CPT/HCPCS: 96365; 96361; 85025; 36415; 85610; 80053; 96375; 99285; J2405; J7030; J0696